=== PATIENT | female | born 1960 | race Caucasian/White ===

== ENCOUNTER 2017-04-04 08:53 | Day surgery (SDC) | payer BC ==
[2017-04-04] MEDS ORDERED: PROPOFOL 20 ML ONE (09:26)
[2017-04-04 09:55] VITALS: BMI 16.5
[2017-04-04 14:57] VITALS: TEMP 97.6
[2017-04-04 15:19] VITALS: BP 110/70; PULSE 68
--- NOTE | 2017-04-06 15:19 | PATH ---
Surgical Pathology Report Patient Name: NINI ORDONEZ [facility]. Rec. #: [id number] /Age/Gender: 1960 (Age: 56) / F Account: [id number] Location: [facility]-ENDOSCOPY Taken: 04/04/2017 Received: 04/04/2017 Reported: 04/06/2017 Physicians: Amparo Alcantara M.D. Specimen(s) Received A: BX SECOND PORTION DUODENUM B: BX ANTRUM C: BX GE JUNCTION Clinical History GERD Gastritis, duodenitis Final Diagnosis A. SECOND PORTION DUODENUM, BIOPSY: MODERATE CHRONIC ACTIVE DUODENITIS WITH VILLOUS BLUNTING. B. ANTRUM, BIOPSY: MODERATE CHRONIC GASTRITIS. DUODENAL MUCOSA SHOWING MODERATE CHRONIC DUODENITIS. IMMUNOSTAIN IS NEGATIVE FOR H. PYLORI ORGANISMS. C. GE JUNCTION, BIOPSY: COLUMNAR (GASTRIC CARDIAC-TYPE) MUCOSA SHOWING MILD CHRONIC INFLAMMATION. NEGATIVE FOR INTESTINAL METAPLASIA. Electronically Signed Meenakshi Littlejohn M.D. Gross Description A. Received in formalin, labeled "second portion of duodenum" is a roa, irregular portion of soft tissue measuring 0.2 cm. in greatest dimension. The specimen is submitted in toto in one cassette. B. Received in formalin, labeled "antrum" are 2 roa, irregular portions of soft tissue measuring 0.2 and 0.3 cm. in greatest dimension. The specimens are submitted in toto in one cassette. C. Received in formalin, labeled "GE junction" is a roa, irregular portion of soft tissue measuring 0.4 cm. in greatest dimension. The specimen is submitted in toto in one cassette. 04/05/2017 [facility]04/05/2017
== END 2017-04-04 11:20 | disposition home or self-care (01) ==
LOC: FASU-ENDO 08:53
PROVIDERS: ATTEND Internal Medicine Gastroenterology
PROC: 0DB48ZX Excision of Esophagogastric Junction, Via Natural or Artificial Opening Endoscopic, Diagnostic (ICD-10-PCS; 2017-04-04)
PROC: 0DB98ZX Excision of Duodenum, Via Natural or Artificial Opening Endoscopic, Diagnostic (ICD-10-PCS; principal; 2017-04-04 10:14)
PROC: 0DB68ZX Excision of Stomach, Via Natural or Artificial Opening Endoscopic, Diagnostic (ICD-10-PCS; 2017-04-04 10:14)
DX: K30 Functional dyspepsia (principal); K29.50 Unspecified chronic gastritis without bleeding; K29.80 Duodenitis without bleeding; K44.9 Diaphragmatic hernia without obstruction or gangrene; K22.9 Disease of esophagus, unspecified
CPT/HCPCS: 88305-TC; 88342-TC